=== PATIENT | male | born 1965 | race Caucasian/White ===

== ENCOUNTER 2018-05-27 16:14 | Outpatient (REF) | payer BC, SELFPAY ==
[2018-05-27 21:22] LABS: Bacteria Negative HPF (Negative); Casts Negative LPF (Negative); Crystals Few Amorphous HPF (Negative); Epithelial Cells Negative HPF (Negative); Mucus Trace (Negative); Other Cells Negative (Negative); RBC Negative (0-2); WBC Negative HPF (0-5)
[2018-05-27 21:23] LABS: C & S Indicated? No
[2018-05-31 11:04] LABS: PSA, Screening 0.9 ng/ml (0-3.5)
== END 2018-05-27 16:34 ==
LOC: NCHCN 16:14
PROVIDERS: PCP Physician Assistant Medical; Visit Provider Internal Medicine
DX: Z00.00 Encounter for general adult medical examination without abnormal findings (principal); R31.9 Hematuria, unspecified; Z12.5 Encounter for screening for malignant neoplasm of prostate
CPT/HCPCS: 84153; 81015

== ENCOUNTER 2019-06-21 08:34 | Outpatient (REF) | payer BC, SELFPAY ==
[2019-06-21 19:48] LABS: ALT 44 U/L (16-63); AST 27 U/L (15-37); Calculated LDL 73 mg/dL; Cholesterol 134 mg/dL (50-200); HDL Cholesterol 41 mg/dL (40-60); Triglyceride 102 mg/dL (30-150)
[2019-06-21 20:05] LABS: Hemoglobin A1C 5.7 % (4.5-6.2)
[2019-06-23 10:31] LABS: PSA, Screening 1.2 ng/ml (0-3.5)
== END 2019-06-21 08:54 ==
LOC: NCHCN 08:34
PROVIDERS: PCP Nurse Practitioner Family; Visit Provider Nurse Practitioner Family
DX: Z00.00 Encounter for general adult medical examination without abnormal findings (principal); R73.9 Hyperglycemia, unspecified; Z79.899 Other long term (current) drug therapy; Z12.5 Encounter for screening for malignant neoplasm of prostate; Z13.220 Encounter for screening for lipoid disorders
CPT/HCPCS: 80061; 84153; 83036; 84450; 84460

== ENCOUNTER 2020-06-07 17:15 | Outpatient (REF) | payer BC, SELFPAY ==
[2020-06-07 19:15] LABS: Anion Gap 10.9 mmol/L (3-11); BUN 15 mg/dL (7-18); CO2 26.1 mmol/L (21.0-32.0); CREATININE 0.87 mg/dL (0.70-1.30); Calcium 9.3 mg/dL (8.5-10.1); Chloride 105 mmol/L (98-107); Glucose 119 mg/dL (74-106); Potassium 3.6 mmol/L (3.5-5.1); Sodium 142 mmol/L (136-145)
[2020-06-07 19:26] LABS: Hemoglobin A1C 5.7 % (<5.7)
[2020-06-08 18:10] LABS: PSA, Screening 1.5 ng/mL (0.0-3.5)
== END 2020-06-07 17:35 ==
LOC: NCHCN 17:15
PROVIDERS: PCP Nurse Practitioner Family; Visit Provider Nurse Practitioner Family
DX: R73.03 Prediabetes (principal); R03.0 Elevated blood-pressure reading, without diagnosis of hypertension; Z12.5 Encounter for screening for malignant neoplasm of prostate
CPT/HCPCS: 80048; 84153; 83036

== ENCOUNTER 2020-12-25 17:20 | Outpatient (REF) | payer BC, SELFPAY ==
[2020-12-25 19:16] LABS: Anion Gap 9.5 mmol/L (3-11); BUN 17 mg/dL (7-18); CO2 27.5 mmol/L (21.0-32.0); CREATININE 0.9 mg/dL (0.70-1.30); Calcium 9.2 mg/dL (8.5-10.1); Chloride 108 mmol/L (98-107); Glucose 97 mg/dL (74-106); Sodium 145 mmol/L (136-145)
[2020-12-25 19:28] LABS: Hemoglobin A1C 5.6 % (<5.7)
== END 2020-12-25 17:21 | disposition home or self-care (01) ==
LOC: NCHCN 17:20
PROVIDERS: PCP Nurse Practitioner Family; Visit Provider Nurse Practitioner Family
DX: I10 Essential (primary) hypertension (principal); R73.03 Prediabetes
CPT/HCPCS: 80048; 83036

== ENCOUNTER 2021-06-11 17:06 | Outpatient (REF) | payer BC, SELFPAY ==
[2021-06-11 20:24] LABS: ALT 67 U/L (16-63); AST 38 U/L (15-37); Albumin 4.4 g/dL (3.4-5.0); Alkaline Phosphatase 82 U/L (46-116); Anion Gap 10.7 mmol/L (3-11); BUN 17 mg/dL (7-18); Bilirubin, Total 0.5 mg/dL (0.2-1.0); CO2 28.3 mmol/L (21.0-32.0); Calcium 9.6 mg/dL (8.5-10.1); Chloride 104 mmol/L (98-107); Glucose 101 mg/dL (74-106); Potassium 3.7 mmol/L (3.5-5.1); Sodium 143 mmol/L (136-145); Total Protein 7.3 g/dL (6.4-8.2)
[2021-06-12 17:44] LABS: PSA, Screening 1.8 ng/mL (0.0-3.5)
== END 2021-06-11 17:07 | disposition home or self-care (01) ==
LOC: NCHCN 17:06
PROVIDERS: PCP Nurse Practitioner Family; Visit Provider Nurse Practitioner Family
DX: I10 Essential (primary) hypertension (principal); Z12.5 Encounter for screening for malignant neoplasm of prostate
CPT/HCPCS: 80053; 84153

== ENCOUNTER 2022-08-13 10:23 | Outpatient (REF) | payer BC, SELFPAY ==
[2022-08-13 20:17] LABS: Hemoglobin A1C 5.6 % (<5.7)
[2022-08-14 20:38] LABS: PSA, Screening 1.9 ng/mL (<=3.5)
== END 2022-08-13 10:24 | disposition home or self-care (01) ==
LOC: NCHCN 10:23
PROVIDERS: PCP Nurse Practitioner Family; Visit Provider Nurse Practitioner Family
DX: Z00.00 Encounter for general adult medical examination without abnormal findings (principal); E66.8 Other obesity; Z12.5 Encounter for screening for malignant neoplasm of prostate; Z13.1 Encounter for screening for diabetes mellitus
CPT/HCPCS: 84153; 83036

== ENCOUNTER 2023-12-02 19:40 | Outpatient (REF) | payer BC, SELFPAY ==
[2023-12-02 20:08] LABS: ALT 71 U/L (16-63); AST 43 U/L (15-37); Albumin 3.9 g/dL (3.4-5.0); Alkaline Phosphatase 72 U/L (46-116); BUN 16 mg/dL (7-18); Bilirubin, Total 0.9 mg/dL (0.2-1.0); CREATININE 0.9 mg/dL (0.70-1.30); Calcium 9.3 mg/dL (8.5-10.1); Chloride 105 mmol/L (98-107); Estimated GFR 98.38 (mL/min/1.73m2); Glucose 112 mg/dL (74-106); Hemoglobin A1C 6.1 % (<5.7); Sodium 142 mmol/L (136-145); Total Protein 7.1 g/dL (6.4-8.2)
== END 2023-12-02 19:41 | disposition home or self-care (01) ==
LOC: NCHCN 19:40
PROVIDERS: PCP Nurse Practitioner Family; Visit Provider Nurse Practitioner Family
DX: R73.03 Prediabetes (principal); I10 Essential (primary) hypertension
CPT/HCPCS: 80053; 83036

== ENCOUNTER 2024-02-02 18:44 | Outpatient (REF) | payer BC, SELFPAY ==
[2024-02-02 19:05] LABS: Abs Immature Grans 0.03 10^3/uL (0.0-0.06); Absolute Basophil Count 0.05 10^3/uL (0.0-0.2); Absolute Eosinophil Count 0.18 10^3/uL (0.0-0.7); Absolute Lymphocyte Count 1.61 10^3/uL (1.2-3.4); Absolute Monocyte Count 0.83 10^3/uL (0.1-0.8); Absolute Neutrophil Count 4.45 10^3/uL (1.2-6.7); Basophils % 0.7 %; Eosinophils % 2.5 %; HCT 45.6 % (40.0-50.0); HGB 16.5 g/dL (13.5-17.5); Immature Grans % 0.4 %; Lymphocytes % 22.5 %; MCH 33.6 pg (27.0-33.0); MCHC 36.2 % (32.0-36.0); MCV 93 fL (80-95); MPV 9.7 fL (8.0-11.0); Monocytes % 11.6 %; Neutrophils % 62.3 %; Platelet Count 140 10^3/uL (130-400); RBC 4.91 10^6/uL (4.36-5.78); RDW 11.4 % (11.8-14.1); RDW-SD 38.7 fL; WBC 7.15 10^3/uL (4.4-10.8)
== END 2024-02-02 18:45 | disposition home or self-care (01) ==
LOC: NCHCN 18:44
PROVIDERS: PCP Nurse Practitioner Family; Visit Provider Nurse Practitioner Family
DX: D72.819 Decreased white blood cell count, unspecified (principal)
CPT/HCPCS: 85025

== ENCOUNTER 2024-08-18 09:34 | Outpatient (REF) | payer BC, SELFPAY ==
[2024-08-18 19:35] LABS: ALT 49 U/L (16-63); AST 38 U/L (15-37); Albumin 3.9 g/dL (3.4-5.0); Alkaline Phosphatase 80 U/L (46-116); Anion Gap 7.5 mmol/L (3-11); BUN 16 mg/dL (7-18); Bilirubin, Total 0.96 mg/dL (0.2-1.0); CO2 29.5 mmol/L (21.0-32.0); Calcium 9.6 mg/dL (8.5-10.1); Calculated LDL 70 mg/dL (<100); Chloride 106 mmol/L (98-107); Cholesterol 153 mg/dL (<200); Estimated GFR 86.16 (mL/min/1.73m2); Glucose 135 mg/dL (74-106); HDL Cholesterol 53 mg/dL (40-60); Sodium 143 mmol/L (136-145); Total Protein 7.4 g/dL (6.4-8.2); Triglyceride 151 mg/dL (<150)
[2024-08-19 19:05] LABS: PSA, Screening 0.8 ng/mL (<=4.5)
[2024-08-22 12:11] LABS: Albumin 63.8 % (55.8-66.1); Albumin g/dL 4.5 g/dL (3.6-5.2); Total Protein 7.1 g/dL (6.3-8.2)
[2024-08-22 15:22] LABS: ANA Interpretation Negative (Negative)
== END 2024-08-18 09:35 | disposition home or self-care (01) ==
LOC: NCHCN 09:34
PROVIDERS: PCP Nurse Practitioner Family; Visit Provider Nurse Practitioner Family
DX: E11.9 Type 2 diabetes mellitus without complications (principal); E78.1 Pure hyperglyceridemia; M79.675 Pain in left toe(s); Z12.5 Encounter for screening for malignant neoplasm of prostate
CPT/HCPCS: 80053; 80061; 84153; 84165; 86038